=== PATIENT | male | born 1970 | race Caucasian/White ===

== ENCOUNTER 2017-11-14 23:54 | Emergency (ER) | payer OTHER ==
[~2017-11-14] VITALS: Ht 167.6 cm; Wt 88.5 kg
[~2017-11-14 23:54] MED LIST: ACETAMINOPHEN-1 EAC1 PO; AMOXICILLIN 50500 MG; AMOXICILLIN 50500 MG PO; AMOXICILLIN500 M1 PO; FLEXERIL PO; IBUPROFEN 600600 M1 PO; IBUPROFEN 800800 M1 PO; IBUPROFEN 800800 MG PO; MOBIC7.5 MG PO; NAPROSYN500 MG PO; NOHOMEMEDICATIONS; NORCO 5-325 TA1 EACH PO; PENICILLIN V P500 MG PO; PENICILLIN VK500 M1 PO; ROBAXIN 750 MG750 M1 PO; TRAMADOL 50 MG50 MG PO; VICODIN 5-5001 EACH PO
[2017-11-15] MEDS ORDERED: MEDROLDOSEPACK PO (00:50)
[2017-11-15 01:07] VITALS: BP 124/83
== END 2017-11-15 01:10 | disposition home or self-care (01) ==
LOC: M.ERS 23:54
DX: G57.32 Lesion of lateral popliteal nerve, left lower limb (principal); F17.200 Nicotine dependence, unspecified, uncomplicated

== ENCOUNTER 2018-09-25 14:46 | Emergency (ER) | payer OTHER ==
[~2018-09-25] VITALS: Ht 167.6 cm; Wt 87.5 kg
[~2018-09-25 14:46] MED LIST changes: +MEDROLDOSEPACK PO
[2018-09-25] MEDS ORDERED: LISINOPRIL10 MG PO (14:59)
[2018-09-25 15:04] VITALS: BP 139/82
== END 2018-09-25 15:05 ==
LOC: M.ERS 14:46
DX: I10 Essential (primary) hypertension (principal); Z76.0 Encounter for issue of repeat prescription; F17.220 Nicotine dependence, chewing tobacco, uncomplicated; Z86.73 Personal history of transient ischemic attack (TIA), and cerebral infarction without residual deficits